=== PATIENT | female | born 1965 | race Caucasian/White ===

== ENCOUNTER 2021-10-26 23:21 | Emergency (ER) | payer BC ==
--- NOTE | 2021-10-27 00:12 | EDM.PDOC ---
ED HPI GENERAL MEDICAL PROBLEM - General Chief Complaint: Lower Extremity Injury/Pain Stated Complaint: LEFT LEG PAIN Time Seen by Provider: 10/27/21 00:11 - History of Present Illness INITIAL COMMENTS - FREE TEXT/NARRATIVE: 56-year-old female presents the emergency room with left lower leg pain. This pain started around 9:00 tonight pain comes and goes it is a sharp stabbing almost electrical-like pain that hits in her lower leg radiates and does not extend up her leg or down into her foot. This occurs about every 3 to 5 minutes. Patient is most concerned about a blood clot. Patient has no history of blood clots. She has a family history of blood clots. And some sort of aneurysm behind the knee and a family member. She has never had pain like this in the past it started this evening and makes it very difficult for her to get any rest. She is not having any breathing difficulties or shortness of breath she has no other complaints at this time. - Related Data Allergies Allergy/AdvReac Type Severity Reaction Status Date / Time No Known Allergies Allergy Verified 10/26/21 23:44 Home Meds: Home Meds Levothyroxine 125 mcg PO ACBREAKFAST 10/26/21 [History] Losartan [Cozaar] 50 mg PO DAILY 10/26/21 [History] Rosuvastatin [Crestor] 10/26/21 [History] Past Medical History Cardiovascular History: Reports: High Cholesterol, Hypertension [employer] History: Reports: Social & Family History - Tobacco Use Tobacco Use Status *Q: Never Tobacco User - Caffeine Use Caffeine Use: Reports: Coffee - Alcohol Use Days Per Week of Alcohol Use: 3 Number of Drinks Per Day: 1 Total Drinks Per Week: 3 - Recreational Drug Use Recreational Drug Use: No Review of Systems - Review of Systems Review Of Systems: See Below Constitutional: Reports: No Symptoms Respiratory: Reports: No Symptoms Cardiovascular: Reports: No Symptoms GI/Abdominal: Reports: No Symptoms Musculoskeletal: Reports: Other (See history of present illness) Skin: Reports: Other Neurological: Reports: Other ED EXAM, GENERAL - Physical Exam Exam: See Below Exam Limited By: No Limitations General Appearance: Alert, No Apparent Distress Respiratory/Chest: No Respiratory Distress, Lungs Clear, Normal Breath Sounds Cardiovascular: Normal Peripheral Pulses, Regular Rate, Rhythm, No Edema, No Murmur Back Exam: Normal Inspection. No: CVA Tenderness (L), CVA Tenderness (R) Extremities: Other (Palpation of the left calf below the gastroc over the area where she has the tenderness is midline in the muscles just above the Achilles tendon. Palpation is slightly tender but does not elicit these little jabs of pain that she experiences.) Course - Vital Signs Last Recorded V/S: Last Vital Signs Temp 36.8 C 10/26/21 23:40 Pulse 91 10/26/21 23:40 Resp 18 10/26/21 23:40 BP 144/121 H 10/26/21 23:40 Pulse Ox 99 10/26/21 23:40 - Orders/Labs/Meds Orders: Active Orders 24 hr Category Date Time Status BASIC METABOLIC PANEL,BMP [CHEM] Stat Lab 10/27/21 01:50 Ordered Labs: Laboratory Tests 10/27/21 10/27/21 10/27/21 Range/Units 00:36 00:36 00:36 WBC 7.61 (3.98-10.04) K/mm3 RBC 4.50 (3.98-5.22) M/mm3 Hgb 13.7 (11.2-15.7) gm/dl Hct 42.0 (34.1-44.9) % MCV 93.3 (79.4-94.8) fl MCH 30.4 (25.6-32.2) pg MCHC 32.6 (32.2-35.5) g/dl RDW Std Deviation 41.7 (36.4-46.3) fL Plt Count 255 (182-369) K/mm3 MPV 9.9 (9.4-12.3) fl Neutrophils % (Manual) 56 (40-60) % Band Neutrophils % 0 (0-10) % Lymphocytes % (Manual) 29 (20-40) % Atypical Lymphs % 0 % Monocytes % (Manual) 11 H (2-10) % Eosinophils % (Manual) 4 (0.7-5.8) % Basophils % (Manual) 0 L (0.1-1.2) Platelet Estimate Adequate Plt Morphology Comment Normal RBC Morph Comment Normal D-Dimer, Quantitative 0.41 (0.19-0.50) mg/L Magnesium 2.2 (1.8-2.4) mg/dL Meds: Medications Discontinued Medications Generic Name Dose Route Start Last Admin Trade Name Freq PRN Reason Stop Dose Admin Lorazepam 1 mg 10/27/21 01:01 10/27/21 01:06 Lorazepam 1 Mg Tab PO 10/27/21 01:02 1 mg ONETIME ONE Administration - Re-Assessments/Exams Free Text/Narrative Re-Assessment/Exam: 10/27/21 00:31 The cause of her pain is unclear I do not believe is a blood clot however will check a D-dimer. Will check electrolytes and magnesium. 10/27/21 01:53 She did not get much relief with this. Chemistry still pending patient is fairly insistent on getting going D-dimer is negative magnesium is normal Departure - Departure Time of Disposition: 01:53 Disposition: Home, Self-Care 01 Clinical Impression: Left leg pain - Discharge Information Referrals: Aquiles Gaspar MD [Primary Care Provider] - Forms: ED Department Discharge Additional Instructions: Return to the emergency room with any questions problems or worsening symptoms. Because your left leg pain is not entirely certain at this time. Follow-up with your regular healthcare provider for further testing. Sepsis Event Note (ED) - Evaluation Sepsis Screening Result: No Definite Risk - Focused Exam Vital Signs: Vital Signs Temp Pulse Resp BP Pulse Ox 10/26/21 23:40 36.8 C 91 18 144/121 H 99 - My Orders Last 24 Hours: My Active Orders 10/27/21 01:50 BASIC METABOLIC PANEL,BMP [CHEM] Stat - Assessment/Plan Last 24 Hours: My Active Orders 10/27/21 01:50 BASIC METABOLIC PANEL,BMP [CHEM] Stat
[2021-10-27] MEDS ORDERED: LORazepam 1 MG Tab PO ONE (01:01)
== END 2021-10-27 01:55 | disposition home or self-care (01) ==
LOC: JD.ED 23:21
DX: M79.662 Pain in left lower leg (principal); E78.00 Pure hypercholesterolemia, unspecified; I10 Essential (primary) hypertension; Z79.899 Other long term (current) drug therapy
CPT/HCPCS: 36415; 80048; 83735; 85007; 85027; 85379; 99283; A9270-GY